=== PATIENT | female | born 1990 | race Caucasian/White ===

== ENCOUNTER 2020-10-31 14:24 | Emergency (ER) | payer MEDICAID ==
[~2020-10-31] VITALS: Ht 152.4 cm; Wt 59.1 kg
[2020-10-31 14:38] VITALS: TEMP 97.7
[2020-10-31 17:28] LABS: BASO # 0.1 (0.0-0.2); BASO % 0.5 % (0.0-2.0); EOS # 0.3 (0.0-0.7); GRAN # 5.2 (1.4-6.5); GRAN % 54.7 % (42.2-75.2); HEMATOCRIT 37.2 % (37.0-47.0); HEMOGLOBIN 12.3 g/dl (12.5-16.0); LYMPH # 3.3 (1.2-3.4); LYMPH % 34.3 % (20.0-51.0); MEAN CELL VOLUME 94 fl (80.0-100.0); MEAN CORPUSCULAR HEMOGLOBIN 31 pg (27.0-31.0); MEAN CORPUSCULAR HGB CONC 33 g/dl (33.0-37.0); MEAN PLATELET VOLUME 9.9 fl (7.4-10.4); MONO # 0.7 (0.1-0.6); MONO % 7.2 % (1.7-9.3); PLATELET COUNT 364 K/mm3 (130-400); RED BLOOD COUNT 3.97 M/mm3 (4.10-5.30); REDCELL DISTRIBUTION WIDTH-CV 13.4 % (11.5-14.5)
[2020-10-31 17:35] LABS: ALBUMIN 4.1 gm/dL (3.5-5.0); BILIRUBIN,TOTAL 0.3 mg/dL (0.0-1.0); CALCIUM 9.2 mg/dL (8.4-10.2); CREATININE, serum 0.72 (0.52-1.25); TOTAL PROTEIN 6.8 gm/dL (6.4-8.2)
[2020-10-31 18:00] VITALS: BP 111/82; PULSE 79
[2020-10-31] MEDS ORDERED: ZOLOFT 50MG50 MG PO (18:11)
[2020-10-31] MEDS ORDERED: TOPAMAX50 MG PO (18:12)
[2020-10-31] MEDS ORDERED: CATAPRES0.2 MG PO (18:14)
[2020-10-31] MEDS ORDERED: SEROQUEL 1100 MG/TAB PO (18:15)
[2020-10-31] MEDS ORDERED: CATAPRES 0.1MG0.1 MG PO (18:15)
[2020-10-31] MEDS ORDERED: ATARAX 25MG25 MG/TAB PO (18:16)
== END 2020-10-31 18:00 | disposition home or self-care (01) ==
LOC: COL.ER 14:24
PROVIDERS: Nurse Practitioner
DX: K80.80 Other cholelithiasis without obstruction (principal); R07.9 Chest pain, unspecified; R06.02 Shortness of breath; F17.200 Nicotine dependence, unspecified, uncomplicated
CPT/HCPCS: Q9967

== ENCOUNTER 2020-11-12 14:09 | Emergency (ER) | payer MEDICAID ==
[~2020-11-12] VITALS: Ht 152.4 cm; Wt 63.6 kg
[~2020-11-12 14:09] MED LIST: ATARAX 25MG25 MG/TAB PO; CATAPRES 0.1MG0.1 MG PO; CATAPRES0.2 MG PO; SEROQUEL 1100 MG/TAB PO; TOPAMAX50 MG PO; ZOLOFT 50MG50 MG PO
[2020-11-12 14:17] VITALS: BP 121/73; TEMP 98.1
[2020-11-12 15:54] LABS: BASO # 0.1 (0.0-0.2); BASO % 0.6 % (0.0-2.0); EOS # 0.2 (0.0-0.7); EOS % 2.5 % (0-4.0); GRAN # 4.4 (1.4-6.5); GRAN % 50.6 % (42.2-75.2); HEMATOCRIT 38.8 % (37.0-47.0); HEMOGLOBIN 12.8 g/dl (12.5-16.0); LYMPH # 3.4 (1.2-3.4); LYMPH % 38.2 % (20.0-51.0); MEAN CELL VOLUME 94 fl (80.0-100.0); MEAN CORPUSCULAR HEMOGLOBIN 31 pg (27.0-31.0); MEAN CORPUSCULAR HGB CONC 33 g/dl (33.0-37.0); MEAN PLATELET VOLUME 9.1 fl (7.4-10.4); MONO # 0.7 (0.1-0.6); MONO % 7.6 % (1.7-9.3); PLATELET COUNT 435 K/mm3 (130-400); RED BLOOD COUNT 4.14 M/mm3 (4.10-5.30); REDCELL DISTRIBUTION WIDTH-CV 13.7 % (11.5-14.5)
[2020-11-12 16:05] LABS: ALBUMIN 4.8 gm/dL (3.5-5.0); BILIRUBIN,TOTAL 0.3 mg/dL (0.0-1.0); CREATININE, serum 0.87 (0.52-1.25); POTASSIUM 4.4 mmol/L (3.4-5.0)
[2020-11-12 16:36] LABS: TSH w REFLEX 0.75 uIU/mL (0.465-4.680)
[2020-11-12 17:02] VITALS: PULSE 112
== END 2020-11-12 17:05 | disposition home or self-care (01) ==
LOC: COL.ER 14:09
PROVIDERS: Physician Assistant
DX: R06.02 Shortness of breath (principal); F17.210 Nicotine dependence, cigarettes, uncomplicated; F20.9 Schizophrenia, unspecified; Z87.820 Personal history of traumatic brain injury

== ENCOUNTER 2020-11-29 01:07 | Emergency (ER) | payer MEDICAID ==
[~2020-11-29] VITALS: Ht 152.4 cm; Wt 63.6 kg
[~2020-11-29 01:07] MED LIST changes: +MOTRIN 400400 MG/TAB PO
[2020-11-29 01:27] VITALS: TEMP 97.6
[2020-11-29 01:58] LABS: BASO # 0.1 (0.0-0.2); BASO % 0.8 % (0.0-2.0); EOS # 0.3 (0.0-0.7); EOS % 3.8 % (0-4.0); GRAN # 3.4 (1.4-6.5); GRAN % 38.3 % (42.2-75.2); HEMATOCRIT 39.9 % (37.0-47.0); LYMPH # 4.4 (1.2-3.4); LYMPH % 49.2 % (20.0-51.0); MEAN CELL VOLUME 95 fl (80.0-100.0); MEAN CORPUSCULAR HEMOGLOBIN 31 pg (27.0-31.0); MEAN CORPUSCULAR HGB CONC 33 g/dl (33.0-37.0); MEAN PLATELET VOLUME 9.1 fl (7.4-10.4); MONO # 0.7 (0.1-0.6); MONO % 7.8 % (1.7-9.3); PLATELET COUNT 368 K/mm3 (130-400); REDCELL DISTRIBUTION WIDTH-CV 12.9 % (11.5-14.5)
[2020-11-29 02:31] LABS: ALANINE AMINOTRANSFERASE 52 U/L (4-34); ALBUMIN 4.4 gm/dL (3.5-5.0); ALKALINE PHOSPHATASE 59 U/L (50-136); ANION GAP 8 mmol/L (7-16); AST,SGOT 25 U/L (15-37); BILIRUBIN,TOTAL 0.3 mg/dL (0.0-1.0); BLOOD UREA NITROGEN 12 mg/dL (7-17); CALCIUM 9.2 mg/dL (8.4-10.2); CARBON DIOXIDE 25 mmol/L (22-30); CHLORIDE 107 mmol/L (98-107); CREATININE, serum 0.77 (0.52-1.25); GLUCOSE 111 mg/dL (74-106); POTASSIUM 3.8 mmol/L (3.4-5.0); SODIUM 140 mmol/L (137-145); TOTAL PROTEIN 7.3 gm/dL (6.4-8.2)
[2020-11-29 02:34] LABS: ACETAMINOPHEN < 10 ug/mL (10-30); ALCOHOL(ethanol),MEDICAL < 10 mg/dL; SALICYLATE < 1.0 mg/dL
[2020-11-29 02:58] LABS: COLLECTION METHOD CLEAN CATCH
[2020-11-29 03:12] LABS: PH 5 (5-8); SQUAMOUS EPITHELIAL 0-2 /hpf; TRICYCLIC ANTIDEPRESS URINE NEGATIVE; URINE APPEARANCE Clear; URINE BACTERIA None Seen /hpf; URINE BILIRUBIN Negative (NEGATIVE); URINE BLOOD Negative (NEGATIVE); URINE COLOR Yellow; URINE GLUCOSE Negative (NEGATIVE); URINE KETONE Negative (NEGATIVE); URINE LEUKOCYTE ESTERASE Negative (NEGATIVE); URINE NITRATE Negative (NEGATIVE); URINE PROTEIN(semi-quant) Negative (NEGATIVE); URINE RBC 0-2 /hpf; URINE UROBILINOGEN Negative (NEGATIVE)
[2020-11-29 04:36] VITALS: BP 134/74; PULSE 80
== END 2020-11-29 04:34 | disposition home or self-care (01) ==
LOC: COL.ER 01:07
PROVIDERS: Emergency Medicine
DX: F23 Brief psychotic disorder (principal); F41.9 Anxiety disorder, unspecified; F32.9 Major depressive disorder, single episode, unspecified; F43.10 Post-traumatic stress disorder, unspecified; F17.210 Nicotine dependence, cigarettes, uncomplicated; Z32.02 Encounter for pregnancy test, result negative

== ENCOUNTER 2021-01-26 17:32 | Emergency (ER) | payer MEDICAID ==
[~2021-01-26] VITALS: Ht 144.8 cm; Wt 70.9 kg
[2021-01-26 18:50] LABS: BASO # 0.1 (0.0-0.2); BASO % 0.4 % (0.0-2.0); EOS # 0.3 (0.0-0.7); EOS % 2.2 % (0-4.0); GRAN # 9.2 (1.4-6.5); GRAN % 68.7 % (42.2-75.2); HEMATOCRIT 39.2 % (37.0-47.0); HEMOGLOBIN 12.8 g/dl (12.5-16.0); LYMPH # 2.9 (1.2-3.4); LYMPH % 21.6 % (20.0-51.0); MEAN CELL VOLUME 93 fl (80.0-100.0); MEAN CORPUSCULAR HEMOGLOBIN 30 pg (27.0-31.0); MEAN CORPUSCULAR HGB CONC 33 g/dl (33.0-37.0); MEAN PLATELET VOLUME 9.8 fl (7.4-10.4); MONO # 0.9 (0.1-0.6); MONO % 6.7 % (1.7-9.3); PLATELET COUNT 338 K/mm3 (130-400); RED BLOOD COUNT 4.21 M/mm3 (4.10-5.30); REDCELL DISTRIBUTION WIDTH-CV 12.5 % (11.5-14.5)
[2021-01-26 18:56] LABS: ALANINE AMINOTRANSFERASE 13 U/L (4-34); ALBUMIN 4.5 gm/dL (3.5-5.0); ALKALINE PHOSPHATASE 42 U/L (50-136); ANION GAP 7 mmol/L (7-16); AST,SGOT 24 U/L (15-37); BILIRUBIN,TOTAL 0.1 mg/dL (0.0-1.0); BLOOD UREA NITROGEN 11 mg/dL (7-17); CALCIUM 9.6 mg/dL (8.4-10.2); CARBON DIOXIDE 29 mmol/L (22-30); CHLORIDE 103 mmol/L (98-107); CREATININE, serum 0.72 (0.52-1.25); GLUCOSE 73 mg/dL (74-106); POTASSIUM 3.6 mmol/L (3.4-5.0); SODIUM 138 mmol/L (137-145); TOTAL PROTEIN 7.8 gm/dL (6.4-8.2)
[2021-01-26 18:57] LABS: ACETAMINOPHEN < 10 ug/mL (10-30); ALCOHOL(ethanol),MEDICAL < 10 mg/dL; SALICYLATE < 1.0 mg/dL
[2021-01-26 18:58] LABS: TRICYCLIC ANTIDEPRESS URINE NEGATIVE
[2021-01-28 08:40] VITALS: TEMP 98
[2021-01-28] MEDS ORDERED: VRAYLAR3 MG PO (08:48)
[2021-01-28] MEDS ORDERED: ZOLOFT 50MG50 MG PO (08:48)
[2021-01-28] MEDS ORDERED: INDERAL 20MG20 MG PO (08:49)
[2021-01-28] MEDS ORDERED: MOTRIN 200200 MG/TAB PO (08:49)
[2021-01-28] MEDS ORDERED: MELATONIN5 M1 SL (08:50)
[2021-01-28] MEDS ORDERED: ATIVAN 1MG T1 MG/TAB PO (08:51)
[2021-01-28 19:08] VITALS: BP 141/86; PULSE 91
== END 2021-01-28 19:08 ==
LOC: COL.ER 17:32
PROVIDERS: Emergency Medicine
DX: F23 Brief psychotic disorder (principal); Z87.820 Personal history of traumatic brain injury